=== PATIENT | female | born 1940 | race Caucasian/White ===

== ENCOUNTER 2016-10-18 08:07 | Inpatient (IN) | payer OTHER ==
[~2016-10-18] VITALS: Ht 149.9 cm; Wt 60.8 kg
[~2016-10-18 08:07] MED LIST: ASPIR-TRIN325 M1 PO; HYDROCODON-ACE1 EAC7 PO; NEXIUM20 MG PO; NOHOMEMEDS; ZITHROMAX Z-PA250 MG PO; ZYRTEC10 M3 PO
[2016-10-18 08:41] VITALS: BP 128/59
[2016-10-18 16:36] VITALS: BP 138/63
[2016-10-18 19:35] VITALS: BP 109/57
[2016-10-18 23:53] VITALS: BP 98/49
[2016-10-19 03:54] VITALS: BP 98/50
[2016-10-19 07:58] VITALS: BP 110/51
[2016-10-19 16:17] VITALS: BP 104/60
[2016-10-19 23:22] VITALS: BP 104/50
[2016-10-20 07:10] VITALS: BP 93/49
[2016-10-20] MEDS ORDERED: HYDROCODON-ACE1 EAC7 PO (07:18)
[2016-10-20] MEDS ORDERED: TIZANIDINE HCL4 MG PO (07:18)
== END 2016-10-20 10:08 | disposition home or self-care (01) | DRG 460 ==
LOC: 2SOUTH 08:07 → 3EAST 16:05
DX: M43.16 Spondylolisthesis, lumbar region (principal); M48.06 Spinal stenosis, lumbar region; M54.16 Radiculopathy, lumbar region; K21.9 Gastro-esophageal reflux disease without esophagitis; K44.9 Diaphragmatic hernia without obstruction or gangrene
CPT/HCPCS: 72100; 76000; 86900; 86901; J0131; J0690; J1100; J1170; J1580; J2370; J2405; J2710; J2930; J3010; J3370; J3480; S0020

== ENCOUNTER 2017-01-17 17:28 | Emergency (ER) | payer OTHER ==
[~2017-01-17] VITALS: Ht 149.9 cm; Wt 61.8 kg
[~2017-01-17 17:28] MED LIST changes: +TIZANIDINE HCL4 MG PO
[2017-01-17] MEDS ORDERED: ANTIVERT25 MG PO (19:36)
[2017-01-17 19:44] VITALS: BP 122/50
== END 2017-01-17 19:58 | disposition home or self-care (01) ==
LOC: EME 17:28
PROC: 0HQ1XZZ Repair Face Skin, External Approach (ICD-10-PCS; principal; 2017-01-17)
DX: S01.81XA Laceration without foreign body of other part of head, initial encounter (principal); S00.83XA Contusion of other part of head, initial encounter; S60.211A Contusion of right wrist, initial encounter; S60.811A Abrasion of right wrist, initial encounter; S80.211A Abrasion, right knee, initial encounter; W18.30XA Fall on same level, unspecified, initial encounter; Y93.01 Activity, walking, marching and hiking
CPT/HCPCS: 70486; 73110; 99281; 99285